=== PATIENT | male | born 1945 | race Caucasian/White ===

== ENCOUNTER 2024-03-24 06:56 | Day surgery (SDC) | payer MEDICARE ==
[2024-03-23 11:20] VITALS: BMI 46.7
[~2024-03-24 06:56] MED LIST: Dexamethasone 0.7 MG IMPLANT IO SCH; EPINEPHrine 0.3 MG in Ophthalmic Irrigation Solution 500 ML IRR SCH
[2024-03-24] MEDS ORDERED: Cyclopentolate 1% Opth Drop 2 ML BOT ONE (07:10)
[2024-03-24] MEDS ORDERED: PHENYLephrine 2.5% Ophth Soln 15 ml Bottle ONE (07:10)
[2024-03-24] MEDS ORDERED: Lidocaine 1% PF 5 ML VIAL ONE ×2 (08:01→08:25)
[2024-03-24] MEDS ORDERED: PROPOFOL 20 ML ONE (08:01)
[2024-03-24] MEDS ORDERED: SUCCINYLCHOLINE/SOD CL,ISO/PF 200 MG/10 ML SYRINGE FS ONE (08:01)
[2024-03-24] MEDS ORDERED: Rocuronium Bromide 10 MG/ML (10ML VIAL) ONE (08:01)
[2024-03-24] MEDS ORDERED: fentaNYL 50 mcg/mL 1 mL Vial ONE (08:01)
[2024-03-24] MEDS ORDERED: Metoclopramide HCl 10 MG (2 mL) VIAL ONE (08:02)
[2024-03-24] MEDS ORDERED: PHENYLEPHRINE-NS 100 MCG/ML 10 ML SYRINGE ONE (08:21)
[2024-03-24] MEDS ORDERED: Lidocaine 4% PF 5 ML AMP ONE (08:25)
[2024-03-24] MEDS ORDERED: Maxitrol 0.1% Opth Oint 3.5 GM TUBE ONE (08:25)
[2024-03-24] MEDS ORDERED: CEFAZOLIN 1 GM VIAL ONE (08:25)
[2024-03-24] MEDS ORDERED: Dexamethasone 0.7 MG IMPLANT ONE (08:25)
[2024-03-24] MEDS ORDERED: Bupivacaine 0.75% 10 ML VIAL ONE (08:25)
[2024-03-24] MEDS ORDERED: Triamcinolone 40 MG/ML VIAL ONE (08:25)
[2024-03-24] MEDS ORDERED: ePHEDrine Sulfate 50 MG/10 ML VIAL ONE (08:31)
== END 2024-03-24 10:12 | disposition home or self-care (01) ==
LOC: SDC 06:56
PROVIDERS: ATTEND Ophthalmology Retina Specialist
PROC: 08T43ZZ Resection of Right Vitreous, Percutaneous Approach (ICD-10-PCS; principal; 2024-03-24)
DX: H43.391 Other vitreous opacities, right eye (principal)
CPT/HCPCS: 67041; J0171; J0690; J2704; J2765; J3010; J3301; J3490; J7312